=== PATIENT | female | born 1960 | race Caucasian/White ===

== ENCOUNTER 2024-09-18 15:56 | Observation (INO) ==
[2024-09-18] MEDS ORDERED: XYLOCAINE 2 % (PLAIN) ONE (19:53)
[2024-09-18] MEDS ORDERED: KETAMINE HCL ONE (19:53)
[2024-09-18 22:06] VITALS: BMI 30.2
[2024-09-18] MEDS: LR 1,000 ML IV 1,000 ML IV SCH (23:55)
[2024-09-19 06:19] LABS: BASOPHILS # (AUTO) 0.1 X10^3/uL (0.0-0.1); BASOPHILS % (AUTO) 1.7 % (0.2-1.0); EOSINOPHILS # (AUTO) 0.2 x10^3/uL (0.0-0.2); EOSINOPHILS % (AUTO) 3.5 % (0.9-2.9); HEMOGLOBIN 11.6 g/dL (12.0-16.0); LYMPHOCYTES # (AUTO) 1.7 X10^3/uL (1.3-2.9); LYMPHOCYTES % (AUTO) 27.3 % (21.0-51.0); MEAN CORPUSCULAR HEMOGLOBIN 30.7 pg (27.0-34.0); MEAN CORPUSCULAR HGB CONC 35.3 g/dL (33.0-35.0); MEAN CORPUSCULAR VOLUME 86.9 fL (80.0-100.0); MONOCYTES # (AUTO) 0.4 x10^3/uL (0.3-0.8); MONOCYTES % (AUTO) 6.7 % (0.0-13.0); NEUTROPHILS # (AUTO) 3.9 x10^3/uL (2.2-4.8); NEUTROPHILS % (AUTO) 60.8 % (42.0-75.0); PLATELET COUNT 139 X10^3/uL (150.0-450.0); RED BLOOD COUNT 3.79 X10^6/uL (3.5-5.4); RED CELL DISTRIBUTION WIDTH 13.9 % (11.6-16.5); WHITE BLOOD COUNT 6.4 X10^3/uL (3.6-10.0)
[2024-09-19] MEDS: LYRICA CAP 150 mg PO SCH (06:23)
[2024-09-19 06:24] LABS: ALANINE AMINOTRANSFERASE 42 Units/L (12-78); ALBUMIN 3.6 g/dL (3.4-5.0); ALKALINE PHOSPHATASE 82 Units/L (46-116); ASPARTATE AMINO TRANSFERASE 20 Units/L (15-37); BLOOD UREA NITROGEN 17 mg/dL (7-18); CALCIUM 8.6 mg/dL (8.5-10.1); CARBON DIOXIDE 25.1 mmol/L (21-32); CHLORIDE 96 mmol/L (98-107); COR NA(FOR HYPERGLY) 133 mmol/L (136-145); CREATININE 0.99 mg/dL (0.55-1.02); GLUCOSE 213 mg/dL (65-99); SODIUM 130 mmol/L (136-145); TOTAL PROTEIN 8.2 g/dL (6.4-8.2); eGFR NON BLACK RACES > 60 (>60)
[2024-09-19] MEDS: NovoLIN R (or HumuLIN R) SUBCUT PRN (06:32)
[2024-09-19] MEDS: LINZESS PO SCH (08:46)
[2024-09-19] MEDS: CYMBALTA PO SCH (08:47)
[2024-09-19] MEDS: LOVENOX INJ 80 MG SYR SC SCH (08:47)
[2024-09-19] MEDS: ATARAX TAB 25 MG PO SCH (08:47)
[2024-09-19] MEDS: NexIUM PO SCH (08:47)
[2024-09-19] MEDS ORDERED: PHARMACY CONSULT - LOVENOX XX SCH (09:00)
[2024-09-19] MEDS: PERCOCET TAB 5/325 MG PO PRN (10:19)
--- NOTE | 2024-09-19 10:21 | DR.H&P ---
H&P History & Physical for Day of: H&P Date: 09/18/24 Chief Complaint Chief Complaint: rest pain both legs, worse on left History of Present Illness History of Present Illness: 4-year-old female complaining of severe rest pain of both lower extremities. Patient has had lower extremity arterial Doppler showing marked low arterial flow both legs. long history of tobacco abuse but stopped several years ago. Patient also with diabetes, history of small cell lung cancer treated with chemotherapy and is disease-free at this point. Patient did have evidence of liver metastasis at initial diagnosis. Patient also has had cerebrospinal fluid requiring placement of a shunt. Past Medical History Past Medical History: Arthritis, Depression, Diabetes, GERD and Headaches Additional Medical History: spinal fluid leak , hx of small cell lung cancer with liver metastasis Past Surgical History Surgical History: Appendectomy, Cholecystectomy and Tonsillectomy Additional Surgical History: tubal ligation, CSF shunt Family History Family Medical History: Diabetes Mellitus, Cancer and Coronary Artery Disease Social History Does patient currently use any type of tobacco product: No Have you used tobacco products in the last 12 months: No Alcohol Use: None Drug Use: None Medications Home Medications: Duloxetine 60 mg twice daily Neurontin 150 mg 3 times daily Protonix 40 mg daily Percocet 10 mg tablets 4 times daily Trazodone 200 mg at bedtime Linzess 290 mcg daily as needed John'patricia 50 units daily Hydroxyzine 25 mg daily Mounjaro subcutaneously weekly Allergies Allergies Allergy/AdvReac Type Severity Reaction Status Date / Time gabapentin (From Neurontin) Allergy Verified 09/05/17 20:42 lansoprazole (From Prevacid) Allergy Verified 09/05/17 20:42 pantoprazole (From Protonix) Allergy Verified 09/05/17 20:42 Sulfa (Sulfonamide Allergy Verified 09/05/17 20:42 Antibiotics) Labs 09/19/24 05:12 09/19/24 05:12 Review of Systems Constitutional: See HPI Eyes: No Symptoms Reported ENT: No Symptoms Reported Cardiovascular: No Symptoms Reported Gastrointestinal: No Symptoms Reported Genitourinary: No Symptoms Reported Musculoskeletal: No Symptoms Reported Skin: No Symptoms Reported Neurological: See HPI Physical Exam Vital Signs: Vital Signs Temperature 97.9 F Pulse Rate [Bilateral Radial] 99 Respiratory Rate 19 Blood Pressure [Right Arm] 128/71 O2 Sat by Pulse Oximetry 99 Oriented: Normal, Time, Person and Place Eyes: Normal Ear: Normal Nose: Normal Throat: Normal Respiratory: Clear Throughout Cardiovascular: Normal and Other ( Pump for CSF in the right abdomen at the costal I cannot palpate femoral pulses either leg nor distal pulses either ankle. Both feet are cold to touch. Moves all extremities.) : Normal Auscultation: Bowel Sounds: Normal Palpation: Normal and Other (Has the pump for the CSF along the right abdomen at the anterior axillary line at the costal margin) Tenderness: Normal Skin: Normal Musculoskeletal: Normal Psychiatric: Depression Mood Description: Flat Affect: Depressed and Flat Speech Pattern: Delayed Assessment/Plan (1) Atherosclerosis of [place] arteries of extremities with rest pain, right leg: Status: Acute Plan: Pain control, plan CT angiogram of the aorta with bilateral lower extremity runoff and arterial intervention as appropriate (2) Atherosclerosis of [place] arteries of extremities with rest pain, left leg: Status: Acute Plan: as above (3) Depression: Status: Acute Plan: Home medications (4) Personal history of lung cancer: Status: Acute Plan: See HPI (5) Constipation by delayed colonic transit: Status: Acute Plan: Continue Linzess (6) Psoriatic arthritis: Status: Acute Plan: Home medications Review H&P Reviewed: Yes Patient was examined?: Yes
--- NOTE | 2024-09-19 10:22 | RAD ---
EXAM: Portable AP chest HISTORY: Preop left lower extremity COMPARISON: 10/28/2021 FINDINGS: T ransverse heart diameter normal with no evidence for pneumonia, atelectasis, CHF/edema or pleural fluid. Left subclavian port terminates at or near the cavoatrial junction. IMPRESSION: No acute findings. THIS IS AN ELECTRONICALLY VERIFIED FINAL REPORT 09/19/2024 10:19 AM - Electronically signed by Khurram Cortez MD
[2024-09-19] MEDS ORDERED: OMNIPAQUE 350 mg/mL 50 mL BTL 50 ML ONE (11:36)
[2024-09-19] MEDS ORDERED: OMNIPAQUE 350 mg/mL 100 mL BTL 100 ML ONE (11:36)
--- NOTE | 2024-09-19 13:36 | CT ---
EXAM: CTA AORTA WITH RUNOFF HISTORY: bilateral ischemic rest pain legs; COMPARISON: None TECHNIQUE: CT angiogram of the abdomen and pelvis with bilateral lower extremity runoff obtained without and with IV contrast. 3D MIPS images obtained and reviewed. Dose reduction techniques including Automated Exposure Control (AEC) and adjustment of mA and kV were utilized. FINDINGS: The visualized portions of the lower thorax demonstrate no acute process. No acute osseous abnormality. Multilevel degenerative changes in the visualized spine. No evidence of aortic aneurysm or dissection. The celiac artery, SMA, bilateral renal arteries, and KATHI appear widely patent. Duplicated right renal artery. The bilateral common, internal, and external iliac arteries appear patent with multifocal atherosclerotic disease. The right common femoral, superficial femoral, and deep femoral arteries are patent with multifocal atherosclerotic disease. The right popliteal artery is patent. The right anterior tibial, posterior tibial, and peroneal arteries are patent to the right foot. The left common femoral, superficial femoral, and deep femoral arteries are patent with multifocal atherosclerotic disease. The left popliteal artery is patent. The left anterior tibial artery is occluded. The left posterior tibial and peroneal arteries are patent to the left foot. The liver, spleen, pancreas, bilateral adrenal glands, and bilateral kidneys demonstrate no acute process. Prior cholecystectomy. Nonspecific stimulator wires adjacent to the liver. Left renal cyst. No evidence of bowel obstruction. The appendix is not definitively visualized. No secondary signs of appendicitis. The bladder is unremarkable. No free air or fluid. Iliac artery stents. The uterus is present. IMPRESSION: Patent three-vessel runoff to the right foot. Patent two-vessel runoff to the left foot. THIS IS AN ELECTRONICALLY VERIFIED FINAL REPORT 09/19/2024 1:33 PM - Electronically signed by Oscar Dodson MD
[2024-09-19] MEDS: DESYREL PO SCH (20:35)
[2024-09-19] MEDS: HIBICLENS WASH EXT ONE (20:40)
[2024-09-19] MEDS: SNACK - Diabetic Appropriate PO SCH (20:41)
[2024-09-19] MEDS: NOZIN NASAL SANITIZER TP SCH (21:30)
--- NOTE | 2024-09-20 08:08 | NOTE.SOAP ---
Soap Note Note for Day of Date of Exam: 09/19/24 Subjective Data Subjective Data: Still complaining of rest pain both legs. CT angiogram obtained. See results below Objective Data Temperature: 98.1 F Pulse Rate: 101 Respiratory Rate: 19 Blood Pressure: 158/81 O2 Sat by Pulse Oximetry: 99 Objective Data: Exam of lower extremities not changed. CT angiogram shows multifocal disease of the superficial and femoral arteries bilaterally with three-vessel runoff on the right and two-vessel runoff on the left Assessment Assessment: Presumed ischemic pain both legs left worse. See result CTA above Plan Plan: On table arteriogram possible intervention of the arteries of the left leg tomorrow
[2024-09-20] MEDS: NS 1,000 ML IV 1,000 ML ONE ×2 (10:37→12:24)
--- NOTE | 2024-09-20 10:56 | EKG ---
Test Reason : pre op surgery Blood Pressure : */* mmHG Vent. Rate : 89 BPM Atrial Rate : 89 BPM P-R Int : 234 ms QRS Dur : 94 ms QT Int : 370 ms P-R-T Axes : 71 82 60 degrees QTc Int : 450 ms Sinus rhythm with 1st degree AV block with premature atrial complexes with aberrant conduction Incomplete right bundle branch block Borderline ECG No previous ECGs available Confirmed by Eder Cardenas MD ([id number]) on 09/20/2024 5:31:52 PM Referred By: Confirmed By: Eder Cardenas MD
[2024-09-20] MEDS: NS 1,000 ML IV 400 ML IV PRN (11:30)
[2024-09-20] MEDS: NS 100 ML IV 100 ML ONE (11:44)
[2024-09-20] MEDS: ANCEF VIAL 1 GRAM ONE (11:44)
[2024-09-20] MEDS: DIPRIVAN VIAL 20 ML ONE ×2 (11:45→12:20)
[2024-09-20] MEDS: VERSED ONE (11:45)
[2024-09-20] MEDS: PRECEDEX INJ VIAL ONE (11:45)
[2024-09-20] MEDS: ANCEF VIAL 1 GRAM IV PRN (11:45)
[2024-09-20] MEDS: FENTANYL VIAL INJ 100 mcg ONE (11:45)
[2024-09-20] MEDS: VERSED IVP PRN (11:47)
[2024-09-20] MEDS: XYLOCAINE 2 % (PLAIN) INJ PRN (11:49)
[2024-09-20] MEDS: PRECEDEX INJ VIAL IVP PRN (11:50)
[2024-09-20] MEDS: DIPRIVAN VIAL 350 ML IVP PRN (11:50)
[2024-09-20] MEDS: FENTANYL VIAL INJ 100 mcg IVP PRN (11:51)
[2024-09-20] MEDS: ZOFRAN INJ 4 MG VIAL ONE (11:56)
[2024-09-20] MEDS: ZOFRAN INJ 4 MG VIAL IVP PRN (12:00)
[2024-09-20] MEDS: KETAMINE HCL IV PRN (12:05)
[2024-09-20] MEDS: VISIPAQUE 50 ML ONE (12:06)
[2024-09-20] MEDS: VISIPAQUE 100 ML ONE (12:06)
[2024-09-20] MEDS: MARCAINE 0.5% ONE (12:10)
[2024-09-20] MEDS: HEPARIN 1,000 UNIT/500 ML-NS 3,000 UNIT/1,500 ML IV.SOLN ONE (12:10)
[2024-09-20] MEDS: HEPARIN SODIUM INJ 5000 UNITS IVP PRN (12:11)
[2024-09-20] MEDS: HEPARIN SODIUM INJ 5000 UNITS ONE (12:11)
[2024-09-20] MEDS: PROTAMINE SULFATE 50 MG VIAL ONE (12:40)
[2024-09-20] MEDS: PROTAMINE SULFATE 50 MG VIAL IVP PRN (12:41)
--- NOTE | 2024-09-20 13:02 | OR.IMMED ---
IMMEDIATE POST-OP NOTE Immediate Post-Op Note Date of surgery/procedure: 09/20/24 Pre-Op Diagnosis: Cortical ischemia left leg with rest pain Post-Op Diagnosis: Same, see findings Procedure: Aortogram, arteriogram left leg, atherectomy and drug-coated balloon angioplasty of completely occluded left superficial femoral artery over approximately 15 cm segment Description of Procedure: dictated Surgeon/Eyelet Machine Operator: Carlos Khalil MD, FACS Findings: Completely occluded distal left superficial femoral artery over segment approximately 15 cm to the adductor canal with two-vessel runoff of the left leg, anterior tibial artery on the left is occluded Estimated Blood Loss: 100 cc Complications: none Progress Notes: Return to floor. Begin Xarelto and aspirin. Probably discharge home tomorrow. Right leg will need to be addressed as outpatient later
[2024-09-20] MEDS: XARELTO PO SCH (20:27)
[2024-09-21] MEDS: ASPIRIN EC 81 MG PO SCH (09:06)
[2024-09-21 11:19] VITALS: RESP 16
[2024-09-21 12:37] VITALS: BP 140/82; PULSE 81; TEMP 97.8; O2SAT 99
--- NOTE | 2024-09-21 12:46 | W.DIS.FURT ---
Summary of Discharge Discharge Summary of Date Date of Exam: 09/21/24 Admission Date Date of Admission: 09/18/24 Admission Diagnosis Hospital Course: This is a 64-year-old female with severe rest pain of both lower extremities with past history of diabetes and former smoker with history of small cell lung cancer treated with chemotherapy and now is cancer free. Patient had Doppler study showing indices of 0 on the left side. Patient also with rest pain in the right side. Patient admitted for pain control and CT angiogram read initially as multifocal disease of the both superficial arteries with two-vessel runoff of the left and three-vessel runoff of the right. On table arteriogram showed complete occlusion of the left superficial femoral artery with two-vessel runoff and patient underwent atherectomy and drug-coated manage patch with Dr. Truong of [facility]. Patient will be discharged at this time on her usual medications plus aspirin 81 mg daily and Xarelto 2.5 mg twice daily. She will follow-up in the office in 1 week and we will at that time make arrangements for intervention of the right leg. Should be noted that she no longer smokes. Vital Signs: Vital Signs (72 hours) 09/18/24 20:28 09/18/24 20:51 09/19/24 00:00 Temperature 97.9 F 98.2 F Pulse Rate Pulse Rate [Bilateral Radial] 99 H 86 Respiratory Rate 19 20 Blood Pressure Blood Pressure [Left Arm] Blood Pressure [Right Arm] 128/71 144/75 O2 Sat by Pulse Oximetry 99 97 Oxygen Delivery Method Room Air Room Air Room Air FIO2% 21 09/19/24 04:00 09/19/24 07:00 09/19/24 07:51 Temperature 98.4 F 98.1 F Pulse Rate Pulse Rate [Bilateral Radial] 94 H 94 H Respiratory Rate 18 18 Blood Pressure Blood Pressure [Left Arm] Blood Pressure [Right Arm] 154/72 136/78 O2 Sat by Pulse Oximetry 98 97 Oxygen Delivery Method Room Air Room Air Room Air FIO2% 21 09/19/24 10:19 09/19/24 11:02 09/19/24 11:19 Temperature 98.4 F Pulse Rate Pulse Rate [Bilateral Radial] 93 H Respiratory Rate 18 18 18 Blood Pressure Blood Pressure [Left Arm] Blood Pressure [Right Arm] 166/84 O2 Sat by Pulse Oximetry 96 Oxygen Delivery Method Room Air FIO2% 09/19/24 15:31 09/19/24 18:58 09/19/24 19:00 Temperature 97.5 F L Pulse Rate Pulse Rate [Bilateral Radial] 103 H Respiratory Rate 18 18 Blood Pressure Blood Pressure [Left Arm] Blood Pressure [Right Arm] 165/89 O2 Sat by Pulse Oximetry 97 Oxygen Delivery Method Room Air Room Air FIO2% 21 09/19/24 19:58 09/19/24 20:00 09/19/24 23:49 Temperature 98.1 F 97.9 F Pulse Rate Pulse Rate [Bilateral Radial] 95 H 101 H Respiratory Rate 18 19 19 Blood Pressure Blood Pressure [Left Arm] 158/87 Blood Pressure [Right Arm] 159/90 O2 Sat by Pulse Oximetry 97 99 Oxygen Delivery Method Room Air Room Air FIO2% 09/20/24 00:26 09/20/24 01:26 09/20/24 03:35 Temperature 98.1 F Pulse Rate Pulse Rate [Bilateral Radial] 90 Respiratory Rate 19 19 19 Blood Pressure Blood Pressure [Left Arm] 145/87 Blood Pressure [Right Arm] O2 Sat by Pulse Oximetry 98 Oxygen Delivery Method Room Air FIO2% 09/20/24 05:29 09/20/24 06:29 09/20/24 07:00 Temperature Pulse Rate Pulse Rate [Bilateral Radial] Respiratory Rate 18 18 Blood Pressure Blood Pressure [Left Arm] Blood Pressure [Right Arm] O2 Sat by Pulse Oximetry Oxygen Delivery Method Room Air FIO2% 09/20/24 08:00 09/20/24 08:08 09/20/24 10:43 Temperature 98.1 F 98.1 F 98.3 F Pulse Rate 101 H 88 Pulse Rate [Bilateral Radial] 89 Respiratory Rate 19 19 18 Blood Pressure 158/81 180/103 Blood Pressure [Left Arm] 155/75 Blood Pressure [Right Arm] O2 Sat by Pulse Oximetry 97 99 97 Oxygen Delivery Method Room Air Room Air FIO2% 09/20/24 10:43 09/20/24 12:55 09/20/24 13:10 Temperature 98.4 F 98.4 F Pulse Rate Pulse Rate [Bilateral Radial] 84 88 Respiratory Rate 18 18 20 Blood Pressure Blood Pressure [Left Arm] 145/71 174/90 Blood Pressure [Right Arm] O2 Sat by Pulse Oximetry 100 100 Oxygen Delivery Method Room Air Room Air FIO2% 09/20/24 13:25 09/20/24 13:40 09/20/24 13:55 Temperature 98.2 F 98.6 F 98.4 F Pulse Rate Pulse Rate [Bilateral Radial] 89 87 85 Respiratory Rate 18 18 18 Blood Pressure Blood Pressure [Left Arm] 165/96 175/86 186/88 Blood Pressure [Right Arm] O2 Sat by Pulse Oximetry 100 100 100 Oxygen Delivery Method Room Air Room Air Room Air FIO2% 09/20/24 14:14 09/20/24 14:55 09/20/24 15:14 Temperature 98.0 F Pulse Rate Pulse Rate [Bilateral Radial] 85 Respiratory Rate 20 18 18 Blood Pressure Blood Pressure [Left Arm] 147/66 Blood Pressure [Right Arm] O2 Sat by Pulse Oximetry 100 Oxygen Delivery Method Room Air FIO2% 09/20/24 15:55 09/20/24 16:55 09/20/24 17:55 Temperature 98.0 F 97.8 F 97.7 F Pulse Rate Pulse Rate [Bilateral Radial] 88 91 H 83 Respiratory Rate 20 20 20 Blood Pressure Blood Pressure [Left Arm] 135/78 159/65 156/85 Blood Pressure [Right Arm] O2 Sat by Pulse Oximetry 97 100 100 Oxygen Delivery Method Room Air Room Air Room Air FIO2% 09/20/24 19:00 09/20/24 19:55 09/20/24 19:59 Temperature 97.6 F Pulse Rate 84 Pulse Rate [Bilateral Radial] 93 H Respiratory Rate 20 Blood Pressure Blood Pressure [Left Arm] 159/87 Blood Pressure [Right Arm] O2 Sat by Pulse Oximetry 98 96 Oxygen Delivery Method Room Air Room Air FIO2% 09/20/24 20:34 09/20/24 21:34 09/20/24 23:01 Temperature 98.0 F Pulse Rate Pulse Rate [Bilateral Radial] 93 H Respiratory Rate 18 18 20 Blood Pressure Blood Pressure [Left Arm] 158/79 Blood Pressure [Right Arm] O2 Sat by Pulse Oximetry 93 L Oxygen Delivery Method Room Air FIO2% 09/21/24 03:43 09/21/24 05:39 09/21/24 06:39 Temperature 98.1 F Pulse Rate Pulse Rate [Bilateral Radial] 90 Respiratory Rate 19 19 18 Blood Pressure Blood Pressure [Left Arm] 135/77 Blood Pressure [Right Arm] O2 Sat by Pulse Oximetry 98 Oxygen Delivery Method Room Air FIO2% 09/21/24 07:00 09/21/24 08:00 09/21/24 12:00 Temperature 98.2 F 97.8 F Pulse Rate Pulse Rate [Bilateral Radial] 92 H 81 Respiratory Rate 16 16 Blood Pressure Blood Pressure [Left Arm] 144/73 140/82 Blood Pressure [Right Arm] O2 Sat by Pulse Oximetry 100 99 Oxygen Delivery Method Room Air Room Air Room Air FIO2% Labs: Laboratory Last Values WBC 6.4 X10^3/uL (3.6-10.0) 09/19/24 05:12 RBC 3.79 X10^6/uL (3.5-5.4) 09/19/24 05:12 Hgb 11.6 g/dL (12.0-16.0) L 09/19/24 05:12 Hct 33.0 % (36.0-47.0) L 09/19/24 05:12 MCV 86.9 fL (80.0-100.0) 09/19/24 05:12 MCH 30.7 pg (27.0-34.0) 09/19/24 05:12 MCHC 35.3 g/dL (33.0-35.0) H 09/19/24 05:12 RDW 13.9 % (11.6-16.5) 09/19/24 05:12 Plt Count 139 X10^3/uL (150.0-450.0) L 09/19/24 05:12 MPV 9.0 fL (7.4-11.0) 09/19/24 05:12 Neut % (Auto) 60.8 % (42.0-75.0) 09/19/24 05:12 Lymph % (Auto) 27.3 % (21.0-51.0) 09/19/24 05:12 Jay % (Auto) 6.7 % (0.0-13.0) 09/19/24 05:12 Eos % (Auto) 3.5 % (0.9-2.9) H 09/19/24 05:12 Baso % (Auto) 1.7 % (0.2-1.0) H 09/19/24 05:12 Neut # (Auto) 3.9 x10^3/uL (2.2-4.8) 09/19/24 05:12 Lymph # (Auto) 1.7 X10^3/uL (1.3-2.9) 09/19/24 05:12 Jay # (Auto) 0.4 x10^3/uL (0.3-0.8) 09/19/24 05:12 Eos # (Auto) 0.2 x10^3/uL (0.0-0.2) 09/19/24 05:12 Baso # (Auto) 0.1 X10^3/uL (0.0-0.1) 09/19/24 05:12 Absolute Nucleated RBC 0.1 /100WBC 09/19/24 05:12 Sodium 130 mmol/L (136-145) L 09/19/24 05:12 Corrected Sodium 133 mmol/L (136-145) L 09/19/24 05:12 Potassium 4.0 mmol/L (3.5-5.1) 09/19/24 05:12 Chloride 96 mmol/L (98-107) L 09/19/24 05:12 Carbon Dioxide 25.1 mmol/L (21-32) 09/19/24 05:12 BUN 17 mg/dL (7-18) 09/19/24 05:12 Creatinine 0.99 mg/dL (0.55-1.02) 09/19/24 05:12 Est GFR (MDRD) Af Amer > 60 (>60) 09/19/24 05:12 Est GFR (MDRD) Non-Af > 60 (>60) 09/19/24 05:12 Glucose 213 mg/dL (65-99) H 09/19/24 05:12 POC Glucose (mg/dL) 134 mg/dL (65-99) H 09/21/24 05:16 Calcium 8.6 mg/dL (8.5-10.1) 09/19/24 05:12 Corrected Calcium TNP 09/19/24 05:12 Total Bilirubin 0.30 mg/dL (0.2-1.0) 09/19/24 05:12 AST 20 Units/L (15-37) 09/19/24 05:12 ALT 42 Units/L (12-78) 09/19/24 05:12 Alkaline Phosphatase 82 Units/L (46-116) 09/19/24 05:12 Total Protein 8.2 g/dL (6.4-8.2) 09/19/24 05:12 Albumin 3.6 g/dL (3.4-5.0) 09/19/24 05:12 Globulin 4.6 g/dL (2.5-4.5) H 09/19/24 05:12 Albumin/Globulin Ratio 0.8 Ratio (1.1-2.1) L 09/19/24 05:12 Reason For Visit: LEFT LOWER EXT, ISCHEMIA Discharge Date Discharge Date: 09/21/24 Discharge Diagnosis All Active Problems (Updated 09/19/24 @ 10:19 by Carlos Khalil) Psoriatic arthritis (Acute) Constipation by delayed colonic transit (Acute) Personal history of lung cancer (Acute) Depression (Acute) Atherosclerosis of [place] arteries of extremities with rest pain, left leg (Acute) Atherosclerosis of [place] arteries of extremities with rest pain, right leg (Acute) Headache (Acute) Plan of Treatment: Continue with present treatment and follow up plan. Pt is to keep follow up appointment as instructed and take medications as ordered. Discharge Medications Discharge Medications: gabapentin (From Neurontin) Allergy (Verified 09/05/17 20:42) lansoprazole (From Prevacid) Allergy (Verified 09/05/17 20:42) pantoprazole (From Protonix) Allergy (Verified 09/05/17 20:42) Sulfa (Sulfonamide Antibiotics) Allergy (Verified 09/05/17 20:42) CONTINUE taking the following medications duloxetine 60 mg capsule,delayed release 60 mg PO BID 09/19/24 [History] esomeprazole magnesium 40 mg capsule,delayed release 40 mg PO QDAY 09/19/24 [History] hydroxyzine HCl 10 mg tablet 10 mg PO QID itch 09/19/24 [History] insulin glargine U-300 conc 300 unit/mL (1.5 mL) subcutaneous pen (Touroxanno SoloStar U-300 Insulin) 50 unit subcut QDAY 09/19/24 [History] linaclotide 290 mcg capsule (Linzess) 290 mcg PO QDAY 09/19/24 [History] oxycodone-acetaminophen 10 mg-325 mg tablet 1 tab PO Q6HR 09/19/24 [History] pen needle, diabetic 31 gauge x 3/16" 09/19/24 [History] pregabalin 150 mg capsule 150 mg PO TID 09/19/24 [History] tirzepatide 7.5 mg/0.5 mL subcutaneous pen injector (Carmelaro) 7.5 mg subcut QWEEK 09/19/24 [History] trazodone 100 mg tablet 200 mg PO QPM 09/19/24 [History] aspirin 81 mg daily Xarelto , 2.5 mg po BID Discharge Disposition Assessment: No distress noted. Discharge Plan Discharge Plan Hospital Course: This is a 64-year-old female with severe rest pain of both lower extremities with past history of diabetes and former smoker with history of small cell lung cancer treated with chemotherapy and now is cancer free. Patient had Doppler study showing indices of 0 on the left side. Patient also with rest pain in the right side. Patient admitted for pain control and CT angiogram read initially as multifocal disease of the both superficial arteries with two-vessel runoff of the left and three-vessel runoff of the right. On table arteriogram showed complete occlusion of the left superficial femoral artery with two-vessel runoff and patient underwent atherectomy and drug-coated manage patch with Dr. Truong of [facility]. Patient will be discharged at this time on her usual medications plus aspirin 81 mg daily and Xarelto 2.5 mg twice daily. She will follow-up in the office in 1 week and we will at that time make arrangements for intervention of the right leg. Should be noted that she no longer smokes. Patient Disposition: 01 HOME, SELF-CARE Condition: Stable Health Concerns: Post Hospitalization: new medications and changes needed to prevent readmission or further decline. Pt educated and given instructions on all concerns. Care Plan Goals: Problem: Altered Tissue Perfusion Goal: Adequate Tissue Perfusion Instructions: Follow provided instructions. Follow up with primary physician as directed. Contact primary care physician or report to the closest Emergency Room if condition worsens. Plan of Treatment: Continue with present treatment and follow up plan. Pt is to keep follow up appointment as instructed and take medications as ordered. Assessment: No distress noted. Prescription drug monitoring program results: PDMP reviewed with concerns iden tified Prescriptions: New aspirin 81 mg tablet 81 mg PO QDAY Qty: 180 0RF rivaroxaban [Xarelto] 2.5 mg tablet 2.5 mg PO BID Qty: 180 0RF Continued oxycodone-acetaminophen 10-325 mg tablet 1 tab PO Q6HR trazodone 100 mg tablet 200 mg PO QPM esomeprazole magnesium 40 mg capsule,delayed release(DR/EC) 40 mg PO QDAY duloxetine 60 mg capsule,delayed release(DR/EC) 60 mg PO BID pregabalin 150 mg capsule 150 mg PO TID Linzess 290 mcg capsule 290 mcg PO QDAY insulin glargine U-300 conc [Toujeo SoloStar U-300 Insulin] 300 unit/mL (1.5 mL) insulin pen 50 unit SUBCUT QDAY hydroxyzine HCl 10 mg tablet 10 mg PO QID (DME) pen needle, diabetic 31 gauge x 3/16" needle MISCELLANEOUS QDAY Mounjaro 7.5 mg/0.5 mL pen injector 7.5 mg SUBCUT QWEEK Orders to Discharge Patient Discharge Orders: Discharge (Routine); Ordered 09/21/24 Ordered By: Carlos Khalil Follow ups/Referrals Follow ups/Referrals: Carlos Khalil [STAFF PHYSICIAN, Unknown] - 09/26/24 3:00 pm Instructions Instructions: Bleeding Precautions When on Anticoagulant Therapy, Adult, Catheter-Directed Thrombolysis, Endovascular Therapy for Peripheral Vascular Disease: What to Know After, Angiogram, Care After, [id number]-Kiwd Activity Restrictions/Additional Instructions: Xeralto 2.5mg PO BID Dr. Khalil will send Rx to patient's pharmacy and she can pick out hand. Stand Alone Forms: Find Help Web Site, Post Hospital Follow Up Care Print Language: ARMENIAN
--- NOTE | 2024-09-21 16:44 | DR.OPNOTE ---
OP NOTE Pre-Op Diagnosis: Critical ischemia left leg Post-Op Diagnosis: same see findings Procedure Date Date Of Procedure: 09/20/24 Procedure: PROCEDURE: Diagnostic aortogram, diagnostic arteriogram left leg, Atherectomy and drug-coated balloon angioplasty left superficial femoral artery NARRATIVE: The patient was taken to the operative suite and placed in the supine position. The right groin and entire left leg were prepped and draped in sterile fashion. Patient was given intravenous sedation supervised by myself. Timeout for the procedure obtained. Ultrasound used to identify the femoral artery in the right groin and the skin overlying it infiltrated with 0.5% Marcaine. Ultrasound used to guide puncture of the right femoral artery and a 0.012 inch guidewire placed. Incision made over the guidewire at the skin edge with a #11 knife blade and the micro sheath placed over the guidewire into the femoral artery. Small wire exchanged for a 0.035 inch Advantage Glidewire and the micro sheath exchanged for a 5 [place]guillan vascular sheath. Patient given 5000 units of intravenous heparin. Omni catheter placed over the guidewire into the aorta and power injector used to perform aortogram showing normal aorta and iliac arteries but small vessels in general. The Omni catheter was then used to direct the guidewire down the left common iliac artery to the distal left external iliac artery. The Omni catheter exchanged for a Newberg catheter and sequential arteriograms perfprmed of the left leg showing complete occlusion of the distal right superficial femoral artery with reconstitution at the adductor canal with two-vessel runoff via the posterior tibial and peroneal arteries. Anterior tibial artery left side is completely occluded with no reconstitution at the ankle . The Newberg catheter removed and over the guidewire the 5 Anguillan sheath was exchanged for a 7 Anguillan Catpult Sheath which was parked in the proximal left superficial femoral artery. Newberg catheter and the 0.035 guidewire used to traverse the arteries of the left leg ultimately ending in left posterior tibial artery. This was selective catheterization. Newberg catheter used to exchange 0.035 inch wire for a 0.014 inch Thruway wire. Over the Thruway wire we placed the JetCybereason atherectomy device and performed atherectomy of the occlusion of the distal left superficial femoral artery. This was then balloon dilated with a [place] 4 mm x 200 mm drug-coated balloon inflated for 3 minutes. This removed and repeat arteriogram showed excellent flow with complete resolution of the conclusion of the left superficial femoral artery. Wires and devices removed from the [place] sheath. This sheath pulled back into the aorta and a 0.035 guidewire placed. Catapult sheath exchanged over the wire for a Angio-Seal device used to close the puncture of the right femoral artery. Patient taken to same-day surgery in good condition. Type of Anesthesia: Local (0.5% Marcaine) Anesthesia Comment: Plus MAC Findings: Complete occlusion of mid to distal segment of the left superficial femoral artery over a distance of 150 mm with two-vessel runoff via the left posterior tibial and peroneal arteries Type of Fluids Used:: Lactated Ringers Total Amount of Fluid Infused:: 400cc EBL: <50 cc Complications:: none Needle/Sponge Count:: correct Disposition/Condition: Pt. tolerated procedure without difficulty. Taken to [facility] in stable condition.
== END 2024-09-21 14:10 | disposition home or self-care (01) ==
LOC: MED/SURG
PROVIDERS: ADMIT Surgery; ATTEND Surgery
DX: K59.01 Slow transit constipation; E11.65 Type 2 diabetes mellitus with hyperglycemia; I10 Essential (primary) hypertension; Z85.118 Personal history of other malignant neoplasm of bronchus and lung; L40.59 Other psoriatic arthropathy; Z01.810 Encounter for preprocedural cardiovascular examination; K21.9 Gastro-esophageal reflux disease without esophagitis; Z98.2 Presence of cerebrospinal fluid drainage device; E87.1 Hypo-osmolality and hyponatremia; I70.223 Atherosclerosis of native arteries of extremities with rest pain, bilateral legs; E11.42 Type 2 diabetes mellitus with diabetic polyneuropathy; F32.89 Other specified depressive episodes; Z85.05 Personal history of malignant neoplasm of liver